=== PATIENT | female | born 2000 | race Caucasian/White ===

== ENCOUNTER 2022-04-27 16:20 | Emergency (ER) | payer MEDICAID, SELFPAY ==
[2022-04-27] MEDS ORDERED: Clindamycin/D5W 900 mg/50 ml Premix Bag ONE (16:56)
[2022-04-27] MEDS ORDERED: Ketorolac Tromethamine 30 MG/ML VIAL ONE (17:56)
== END 2022-04-27 18:17 | disposition home or self-care (01) ==
LOC: ERS 16:20
DX: K12.2 Cellulitis and abscess of mouth (principal)
CPT/HCPCS: 96365; 96375; J1885; J3490